=== PATIENT | female | born 1955 | race Caucasian/White ===

== ENCOUNTER 2017-04-06 11:31 | Emergency (ER) | payer OTHER ==
[~2017-04-06] VITALS: Ht 172.7 cm; Wt 68.0 kg
[~2017-04-06 11:31] MED LIST: AMBIEN10 MG PO; DIVIGEL0.25 MG TD; METOPROLOL SUCC25 MG PO; MOTRIN600 MG PO; TRIAMTERENE-HC1 EAC1
[2017-04-06] MEDS ORDERED: NAPROXEN375 MG PO (13:59)
== END 2017-04-06 16:33 | disposition home or self-care (01) ==
LOC: ED 11:31
PROC: 2W3QX1Z Immobilization of Right Lower Leg using Splint (ICD-10-PCS; principal; 2017-04-06)
DX: S93.401A Sprain of unspecified ligament of right ankle, initial encounter (principal); S93.601A Unspecified sprain of right foot, initial encounter; S80.01XA Contusion of right knee, initial encounter; Z90.710 Acquired absence of both cervix and uterus; Z90.49 Acquired absence of other specified parts of digestive tract; Z79.899 Other long term (current) drug therapy; W01.0XXA Fall on same level from slipping, tripping and stumbling without subsequent striking against object, initial encounter; Y92.129 Unspecified place in nursing home as the place of occurrence of the external cause
CPT/HCPCS: 29515; 73560; 73610; 73630; 73700; 99284

== ENCOUNTER 2024-05-10 21:27 | Emergency (ER) | payer OTHER, MEDICARE ==
[~2024-05-10] VITALS: Ht 172.7 cm; Wt 74.8 kg
[~2024-05-10 21:27] MED LIST changes: +NAPROXEN375 MG PO
[2024-05-10] MEDS ORDERED: FUROSEMIDE20 MG (21:42)
[2024-05-10] MEDS ORDERED: LISINOPRIL-HCT1 EACH PO (21:42)
[2024-05-10] MEDS ORDERED: SPIRONOLACTONE25 MG (21:42)
[2024-05-10] MEDS ORDERED: DILT-XR120 MG (21:42)
[2024-05-10] MEDS ORDERED: TM-VITE RX T1000 MCG (21:43)
[2024-05-10] MEDS ORDERED: KLOR-CON M2020 MEQ (21:43)
[2024-05-10] MEDS ORDERED: ADULT ASPIRIN R81 MG (21:44)
[2024-05-10] MEDS ORDERED: FLAXSEED1000 MG (21:44)
[2024-05-10] MEDS ORDERED: CANDICIDAL CAP1 EACH (21:45)
[2024-05-10] MEDS ORDERED: MULTI-VITAMIN1 EACH (21:45)
[2024-05-10] MEDS ORDERED: IRON256 MG (21:45)
[2024-05-10] MEDS ORDERED: HYDROmorphone HCL 1 MG/ML SYR IV PRN (22:00)
[2024-05-10] MEDS ORDERED: ONDANSETRON 4 MG TAB ODT SL ONE (23:15)
[2024-05-10] MEDS ORDERED: ETOMIDATE 40 MG/20 ML VIAL IV ONE (23:15)
[2024-05-10] MEDS ORDERED: HYDROCODON-ACE1 EA10 PO (23:34)
[2024-05-10] MEDS ORDERED: HYDROCODONE BIT/ACETAMINOPHEN 5/325 MG 1 TAB HOME.PACK PO ONE (23:45)
[2024-05-10] MEDS ORDERED: ONDANSETRON 4 MG HOME.PACK SL ONE (23:45)
[2024-05-11 00:03] VITALS: BP 145/83
== END 2024-05-11 00:16 | disposition home or self-care (01) ==
LOC: ED 21:27
DX: S52.532A Colles' fracture of left radius, initial encounter for closed fracture (principal); M25.552 Pain in left hip; W01.0XXA Fall on same level from slipping, tripping and stumbling without subsequent striking against object, initial encounter; Y92.39 Other specified sports and athletic area as the place of occurrence of the external cause; I11.0 Hypertensive heart disease with heart failure; I50.9 Heart failure, unspecified; Z79.82 Long term (current) use of aspirin; Z79.899 Other long term (current) drug therapy
CPT/HCPCS: 25605; 70450; 72125; 73110; 73502; 99284-25; A9270; J1171

== ENCOUNTER 2024-05-24 08:47 | Day surgery (SDC) | payer OTHER, MEDICARE ==
[~2024-05-24] VITALS: Ht 172.7 cm; Wt 75.9 kg
[~2024-05-24 08:47] MED LIST changes: +ADULT ASPIRIN R81 MG; +CANDICIDAL CAP1 EACH; +CEFAZOLIN SODIUM 2 GM/20 ML SYR IV SCH; +DILT-XR120 MG; +FLAXSEED1000 MG; +FUROSEMIDE20 MG; +HYDROCODON-ACE1 EA10 PO; +IBLOOD GLUCOSE TEST STRIP 1 EA TEST VI PRN; +IRON256 MG; +KLOR-CON M2020 MEQ; +LACTATED RINGER'S 1,000 ML IV SCH; +LIDOCAINE HCL 1% 5 ML SDV INJ ONE; +LISINOPRIL-HCT1 EACH PO; +MULTI-VITAMIN1 EACH; +SPIRONOLACTONE25 MG; +TM-VITE RX T1000 MCG; +ZOLPIDEM TARTRA10 MG PO
[2024-05-24 09:01] VITALS: BP 127/58
[2024-05-24] MEDS ORDERED: Ropivacaine HCl 0.5% 30 ML VIAL ONE (09:07)
[2024-05-24] MEDS ORDERED: LIDOCAINE HCL 2% 5 ML SDV ONE ×2 (09:07→10:27)
[2024-05-24] MEDS ORDERED: MIDAZOLAM HCL 2 MG/2 ML VIAL ONE (09:07)
[2024-05-24] MEDS ORDERED: DEXAMETHASONE SOD PHOS 4 MG/ML VIAL ONE ×2 (09:07→10:24)
[2024-05-24] MEDS ORDERED: fentaNYL citrate 100 MCG/2 ML VIAL ONE (10:08)
[2024-05-24] MEDS ORDERED: ondansetron HCL 4 MG/2 ML VIAL ONE (10:24)
[2024-05-24] MEDS ORDERED: propofoL 200 MG/20 ML VIAL ONE (10:24)
[2024-05-24] MEDS ORDERED: HYDROCODONE/ACETA 7.5/325 TAB PO PRN (10:30)
[2024-05-24] MEDS ORDERED: ePHEDrine sulfate 50 MG/ML AMP ONE (10:39)
--- NOTE | 2024-05-24 10:50 | NUR ---
PT ARRIVES TO DS DEPT FROM PACU VIA STRETCHER. PT REPORTS NO PAIN OR NAUSEA AT THIS TIME. PT IS A&O, PT ASKING APPROPRIATE QUESTIONS AT THIS TIME. DRESSING IS C/D/I, NO SIGNS OF BLEEDING. FAITH HOSE, HEEL PROTECTORS, CRYO CUFF, ONQ PUMP @4, AND FOOT PUMPS IN PLACE AT THIS TIME. SPINAL AT HIP LEVEL, PT ABLE TO SLIGHTLY WIGGLE BILAT TOES. JELLO, CRACKERS, AND ICE WATER PROVIDED. PT TOLERATING WITHOUT DIFFICULTY SWALLOWING. FAMILY FOUND IN HALLWAY AND NOW IN PT ROOM AT BEDSIDE. HOB ELEVATED AT PT REQUEST. CALL LIGHT WITHIN REACH, PT STATES NO FURTHER NEEDS OR QUESTIONS AT THIS TIME.
[2024-05-24] MEDS ORDERED: CELECOXIB200 MG PO (11:14)
[2024-05-24] MEDS ORDERED: HYDROCODON-ACE1 EA11 PO (11:15)
[2024-05-24 11:22] VITALS: BP 109/49
--- NOTE | 2024-05-24 11:24 | NUR ---
05/24/24 1124 Mirela Lucero 1105-PT ARRIVES TO PACU VIA STRETCHER, PT A+O X4, DENIES PAIN OR [place], VSS ON RA, RR EVEN AND UNLABORED. LT WRIST ELEVATED AND ICE PACK APPLIED. 1120-PT TAKEN BACK TO DAY SURGERY VIA STRETCHER, BEDSIDE REPORT GIVEN TO RN, ALL QUESTIONS ANSWERED. PT TALKING W/ FAMILY, DENIES PAIN OR NAUSEA, VSS ON RA.
--- NOTE | 2024-05-24 11:31 | NUR ---
Patient returns back to room 5 from PACU. Report received from GEE Dietz. Patient is awake and talking to her family but is still a bit drowsy. Vital signs obtained. Dressing to left lower arm intact, ice pack in place. Capillary refill WDL. She denies any pain to her arm. She is not able to feel touch and is not able to move her fingers at this time. Water and pudding provided to patient. I explained to patient the expectations to be able to go home and she expressed understanding. She denies any other needs at this time. Call light within reach, bed in lowest position.
[2024-05-24 12:18] VITALS: BP 106/43
--- NOTE | 2024-05-24 12:20 | NUR ---
Hourly rounding on patient. Patient states that she is doing well. She still has no pain, still having numbness to her left lower arm. Still unable to feel me touching her fingers. Capillary refill is WDL. She denies any nausea. She has been up to use the restroom. At this time she has met all discharge criteria and is allowed to get dressed at this time.
--- NOTE | 2024-05-24 12:45 | NUR ---
Discharge instructions reviewed in detail with patient and with her present. She denies any questions or concernes. We reviewed that since she is unable to feel her lower left arm, then she needs to be extra careful. We also talked about how to ensure that her lower left arm is getting adequate circulation and what to do if she feels like the circulation is not adequate and she expressed understanding. Patient discharged via wheelchair where her is to take her home.
[2024-05-24] MEDS ORDERED: SEVOFLURANE 250 ML BTL INH ONE (15:19)
[2024-05-24] MEDS ORDERED: CELECOXIB 200 MG CAP PO SCH (17:00)
--- NOTE | 2024-05-26 18:07 | OR ---
[facility] [address], [place] [address] Signed DATE OF OPERATION: 05/24/2024 SURGEON: Antonina Marina MD PREOPERATIVE DIAGNOSIS: Distal radius fracture, left. POSTOPERATIVE DIAGNOSIS: Distal radius fracture, left. PROCEDURE PERFORMED: Closed reduction and percutaneous pinning of left distal radius. DRUG SAFETY ASSOCIATE: Rand Snyder PA-C. ANESTHESIA: General. BLOOD LOSS: Minimal. IMPLANTS: One 2.0 and two 1.6 K-wires. BRIEF HISTORY: Marylu is a 68-year-old female who suffered a ground level fall fracturing left distal radius. This was displaced and foreshortened. Risks and benefits of operative treatment were discussed with her and she elected to proceed. DESCRIPTION OF PROCEDURE: Once consent was obtained she was taken to the operating room. After adequate anesthesia she was placed on the operating room table with a hand table. The arm was prepped and draped in a standard sterile fashion. Closed reduction was performed, however, she still had loss of radial inclination. I then introduced a 2.0 pin into the fracture . This was then used to lever the radius back into position. This was then driven across the radius engaging the ulnar side. Two more K-wires were placed, one from dorsal, one from the radial styloid. This provided a secure construct. All three pins were bent and cut and dressed with Allevyn dressing. She was then placed in a distal Electronically Signed By: ANTONINA MARINA MD 05/26/24 1807 PATIENT NAME: MARYLU MCDANIEL OPERATIVE REPORT DATE OF : 55 REPORT #: [id number] PHYSICIAN: ANTONINA MARINA MD PCP: KAL MONSALVE MD REPORT IS CONFIDENTIAL AND NOT TO BE RELEASED WITHOUT AUTHORIZATION [address] [place] [address] Signed radius splint and taken to recovery room in satisfactory condition. All sponge, needle, and instrument counts were correct. Antonina Marina MD BA/RIPL /[id number] Copies: ~ Electronically Signed By: ANTONINA MARINA MD 05/26/24 1807 PATIENT NAME: MARYLU MCDANIEL OPERATIVE REPORT DATE OF : 55 REPORT #: [id number] PHYSICIAN: ANTONINA MARINA MD PCP: KAL MONSALVE MD REPORT IS CONFIDENTIAL AND NOT TO BE RELEASED WITHOUT AUTHORIZATION
== END 2024-05-24 12:45 | disposition home or self-care (01) ==
LOC: DS 08:47
PROVIDERS: ATTEND Specialist
PROC: 0PSJ36Z Reposition Left Radius with Intramedullary Internal Fixation Device, Percutaneous Approach (ICD-10-PCS; principal; 2024-05-24 11:10)
DX: S52.532A Colles' fracture of left radius, initial encounter for closed fracture (principal); W01.0XXA Fall on same level from slipping, tripping and stumbling without subsequent striking against object, initial encounter; I10 Essential (primary) hypertension; Z79.899 Other long term (current) drug therapy
CPT/HCPCS: 01820; 64417; 73100; A9270; J0690; J1100; J2003; J2250; J2405; J2704; J2795; J3010; J7121